=== PATIENT | female | born 1925 | race Caucasian/White ===

== ENCOUNTER 2016-07-12 15:12 | Inpatient (IN) | payer MEDICARE, BC ==
[2016-07-12] MEDS ORDERED: metroNIDAZOLE/Normal Saline 500 MG in Premix Bag 1 BAG IV SCH (17:00)
[2016-07-12] MEDS ORDERED: Ketorolac 30 MG/ML SDV IVPUSH PRN (17:06)
[2016-07-12] MEDS ORDERED: Ondansetron 4 MG Tab.DIS PO PRN (17:06)
[2016-07-12] MEDS ORDERED: Sodium Chloride 0.9% 10 ML Syringe FLUSH PRN (17:06)
[2016-07-12] MEDS ORDERED: Enoxaparin 30 MG/0.3 ML Syringe SUBCUT SCH (17:15)
--- NOTE | 2016-07-12 17:16 | PCM.HP ---
H&P History of Present Illness - General Date of Service: 07/12/16 Admit Problem/Dx: Admission Diagnosis/Problem Admission Diagnosis/Problem Diverticulitis Source of Information: Patient History Limitations: Reports: No Limitations - History of Present Illness Initial Comments - Free Text/Narative: This is 89-year-old female patient has had left lower quadrant abdominal pain for couple days. She saw Dr. Koehler today. He felt she was very sick looking and wanted to go the hospital. She states she can't rule out subtle because she needs to take care of her . The ear metronidazole and Bactrim. Her son called later in [place] going on and she came over for admission. She denies fevers, chills, nausea, vomiting, hematochezia, melena, diarrhea or constipation. She states she said diverticulitis before. She denies any vaginal discharge or dysuria, pyuria or hematuria. - Related Data Allergies/Adverse Reactions: Allergies Allergy/AdvReac Type Severity Reaction Status Date / Time amoxicillin Allergy Nausea and Verified 07/12/16 16:42 Vomiting codeine Allergy Headache Verified 07/12/16 16:44 hydrocodone Allergy Nausea Verified 07/12/16 16:50 hydromorphone [From Dilaudid] Allergy Nausea and Verified 07/12/16 16:44 Vomiting meperidine Allergy Nausea and Verified 07/12/16 16:45 Vomiting morphine Allergy Hives Verified 07/12/16 16:43 oxycodone Allergy Headache Verified 07/12/16 16:45 pentazocine Allergy Headache Verified 07/12/16 16:46 prednisolone Allergy Cannot Verified 09/20/15 16:19 Remember tramadol Allergy Nausea and Verified 07/12/16 16:47 Vomiting ciprofloxacin AdvReac Burning Verified 09/20/15 16:19 narcotics Allergy Vomiting Uncoded 09/20/15 16:19 Home Medications: Home Meds Latanoprost [Xalatan 0.005% Ophth Soln] 1 drop EYEBOTH BEDTIME 10/10/15 [History ] Timolol Maleate [Timoptic 0.5% Ophth Soln] 1 drop EYERT BIDMEALS 10/11/15 [ History] Sulfamethoxazole/Trimethoprim [Septra DS] 1 tab PO BID 07/12/16 [History] metroNIDAZOLE [Metronidazole] 500 mg PO TID 05/11/17 [History] Past Medical History HEENT History: Reports: Cataract, Other (see below) 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 Has follow up and injections for it in [facility] Cardiovascular History: Reports: Other (see below) Other Cardiovascular History: Pt states she has had mild issues with her heart. CONSTRUCTION JOB TITLES History: Reports: Musculoskeletal History: Reports: Back pain, chronic Other Musculoskeletal History: weakness in both legs, uses a cane. Has bone on bone in her back. 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 Neurological Surgical History: Reports: None Musculoskeletal Surgical History: Reports: Shoulder surgery Social & Family History - Family History Family Medical History: Noncontributory Other Cardiac Family History: both parents of strokes. OBGYN: Reports: - Tobacco Use Smoking Status *Q: Former Smoker Years of Tobacco use: 3 Used Tobacco, but Quit: No Month Tobacco Last Used: October Second Hand Smoke Exposure: No - Caffeine Use Caffeine Use: Reports: Coffee Other Caffeine Use: 3 cups per day - Alcohol Use Days Per Week of Alcohol Use: 0 - Recreational Drug Use Recreational Drug Use: No H&P Review of Systems - Review of Systems: Review Of Systems: See Below General: Reports: No Symptoms HEENT: Reports: No Symptoms Pulmonary: Reports: No Symptoms Cardiovascular: Reports: No Symptoms Gastrointestinal: Reports: Abdominal Pain Genitourinary: Reports: No Symptoms Musculoskeletal: Reports: No Symptoms Skin: Reports: No Symptoms Psychiatric: Reports: No Symptoms Neurological: Reports: No Symptoms Hematologic/Lymphatic: Reports: No Symptoms Immunologic: Reports: No Symptoms Exam - Exam Exam: See Below - Vital Signs Weight: 145 lb 12.8 oz - Exam General: Alert, Oriented, Cooperative HEENT: PERRLA, Hearing Intact, Mucosa Moist & [place], Posterior Pharynx Clear, TMs Clear Neck: Supple, Trachea Midline. No: Carotid Bruit Lungs: Clear to Auscultation, Normal Respiratory Effort. No: Crackles, Rales, Rhonchi Cardiovascular: Regular Rate, Regular Rhythm, Normal S1, Normal S2. No: Tachycardia Abdomen: Soft, Tenderness (Left lower quadrant). No: Distention, Guarding, Rigidity Back Exam: Normal Inspection, Full Range of Motion Extremities: Normal Inspection. No: Edema Skin: Warm, Dry, Intact Neurological: Strength Equal Bilateral, Normal Tone Neuro Extensive - Mental Status: Alert, Oriented x3, Normal Mood/Affect, Normal Cognition, Memory Intact *Q Meaningful Use (ADM) - VTE *Q VTE Criteria *Q: - Stroke *Q Stroke Criteria *Q: - AMI *Q AMI Criteria *Q: - Problem List (1) Diverticulitis SNOMED Code(s): 479045595 ICD Code: K57.92 - DVTRCLI OF INTEST, PART UNSP, W/O PERF OR ABSCESS W/O BLEED Status: Acute Current Visit: No Onset Date: 09/15/13 Problem Details: DC home today on Flagyl/cipro Problem List Initiated/Reviewed/Updated: Yes Orders Last 24hrs: Active Orders 24 hr Category Date Time Status Admission Status [Patient Status] [ADT] Routine ADT 07/12/16 15:33 Active Patient Status [ADT] Routine ADT 07/12/16 17:06 Ordered Height and Weight [RC] DAILY Care 07/12/16 17:06 Ordered Intake and Output [RC] QSHIFT Care 07/12/16 17:07 Ordered Oxygen Therapy [RC] PRN Care 07/12/16 17:06 Ordered Up ad Sarah [RC] ASDIRECTED Care 07/12/16 17:06 Ordered VTE/DVT Education [RC] Per Unit Routine Care 07/12/16 17:06 Ordered Vital Signs [RC] Q4H Care 07/12/16 17:06 Ordered Regular Diet [DIET] Diet 07/12/16 Dinner Ordered CBC WITH AUTO DIFF [HEME] Routine Lab 07/12/16 17:06 Ordered COMPREHENSIVE METABOLIC PN,CMP [CHEM] Routine Lab 07/12/16 17:06 Ordered CULTURE BLOOD [BC] Urgent Lab 07/12/16 17:09 Ordered CULTURE BLOOD [BC] Urgent Lab 07/12/16 17:09 Ordered UA W/MICROSCOPIC [URIN] Routine Lab 07/12/16 17:06 Uncollected Acetaminophen [Tylenol Extra Strength] Med 07/12/16 17:10 Ordered 500 mg PO Q6H PRN Enoxaparin [Lovenox] Med 07/12/16 17:15 Ordered 30 mg SUBCUT DAILY Ketorolac [Toradol] Med 07/12/16 17:06 Ordered 30 mg IVPUSH Q6H PRN Lactated Ringers [Ringers, Lactated] 1,000 ml Med 07/12/16 17:15 Ordered IV ASDIRECTED Latanoprost [Xalatan 0.005% Ophth Soln] Med 07/12/16 21:00 Ordered 1 drop EYEBOTH BEDTIME Ondansetron [Zofran ODT] Med 07/12/16 17:06 Ordered 4 mg PO Q4H PRN Sodium Chloride 0.9% [Saline Flush] Med 07/12/16 17:06 Ordered 10 ml FLUSH ASDIRECTED PRN Timolol Maleate [Timoptic 0.5% Ophth Soln] Med 07/12/16 18:00 Ordered 1 drop EYERT BIDMEALS cefTRIAXone [Rocephin] 1,000 mg Med 07/12/16 17:15 Ordered Sodium Chloride 0.9% [Normal Saline] 50 ml IV Q24H metroNIDAZOLE/Normal Saline [Flagyl 500 MG in NS 100 ML Med 07/12/16 17:15 Ordered ] 500 mg Premix Bag 1 bag IV Q8H Blood Culture x2 Reflex Set [OM.PC] Urgent Oth 07/12/16 17:06 Ordered Peripheral IV Insertion Adult [OM.PC] Routine Oth 07/12/16 17:06 Ordered Sequential Compression Device [OM.PC] Per Unit Routine Oth 07/12/16 17:07 Ordered Resuscitation Status Routine Resus Stat 07/12/16 17:06 Ordered Assessment/Plan Comment:: 1. Admit to the floor. 2. IV fluids. 3. Patient has lots of allergies. I will give Rocephin 1 g every 24 IV with metronidazole 500 mg IV every 8 hours. 4. Patient has allergies to narcotics. Transient Toradol 30 mg IV every 6 hours when necessary for pain. Or Tylenol 500 mg every 4 hours when necessary. 5. Discussed gastrectasis. She wants to be DO NOT RESUSCITATE/DO NOT INTUBATE. 6. Regular diet. 7. Up ad sarah. 8. CBC, UA, chem 12. 9. The VTE prophylaxis 10. The patient has a high white count and worsening abdominal findings. Consider CT of the abdomen in the future.
[2016-07-12] MEDS: Lactated Ringers 1,000 ML IV SCH (17:30)
[2016-07-12] MEDS ORDERED: Timolol Maleate 0.5% Ophth Soln 5 ML Bottle EYERT SCH (18:00)
[2016-07-12] MEDS ORDERED: Timolol Maleate 0.5% Ophth Soln 5 ML Bottle **OWN MED EYERT SCH (18:00)
[2016-07-12] MEDS: cefTRIAXone 1,000 MG in Sodium Chloride 0.9% 50 ML IV SCH (18:24)
[2016-07-12] MEDS: Acetaminophen 500 MG Tab PO PRN (18:24)
[2016-07-12] MEDS: Sodium Chloride 0.9% 250 ML IV SCH (18:30)
[2016-07-12] MEDS ORDERED: Iopamidol 755 Mg/ML 75 ML Bottle IV ONE (20:03)
[2016-07-12] MEDS ORDERED: Latanoprost 0.005% Ophth Soln 2.5 ML Bottle EYEBOTH SCH (21:00)
[2016-07-12] MEDS: LATANOPROST 0.005% EYEBOTH SCH (21:54)
[2016-07-12] MEDS: metroNIDAZOLE/Normal Saline 500 MG in Premix Bag 1 BAG IV SCH (21:54)
[2016-07-12] MEDS ORDERED: Enoxaparin 30 MG/0.3 ML Syringe SUBCUT ONE (22:00)
[2016-07-13] MEDS: metroNIDAZOLE/Normal Saline 500 MG in Premix Bag 1 BAG IV SCH ×2 (05:34→14:25)
[2016-07-13] MEDS: Acetaminophen 500 MG Tab PO PRN (05:38)
[2016-07-13] MEDS ORDERED: Acetaminophen 500 MG Tab PO PRN (08:37)
--- NOTE | 2016-07-13 10:01 | PN ---
DATE SEEN: 07/13/2016 REASON FOR VISIT: Left lower quadrant abdominal pain. HISTORY OF PRESENT ILLNESS: This is an 89-year-old female admitted from an outpatient clinic yesterday because of pain in the left lower quadrant, was found to have diverticulitis on a CT scan. She has little appetite. Denies nausea, vomiting, or diarrhea. No constipation. REVIEW OF SYSTEMS: No fever or chills. Some chest wall pain from recent rib fracture. ALLERGIES: She has multiple allergies. Please see the nurse's note for the complete list. PHYSICAL EXAMINATION: GENERAL: She is not in distress. She is well nourished. VITAL SIGNS: Her blood pressure is normal. Her pulse is 73 beats per minute. EARS, NOSE, AND THROAT: Negative. CHEST: Clear. CARDIOVASCULAR: S1, S2 normal. ABDOMEN: Soft. There is exquisite tenderness on the left lower quadrant. LABORATORY DATA: White cell count was normal yesterday. CT was reviewed and also showed 1 cm sized pulmonary nodule. IMPRESSION: 1. Acute diverticulitis. 2. Pulmonary nodule. PLAN: Continue current treatment, increase Tylenol to 1000 mg to help the pain. Decrease to clear liquid diet. Continue IV fluid. Continue the Rocephin and metronidazole. Our plan is to possibly discharge her tomorrow if she is able to tolerate normal fluid, and her pain is better. Already, the family feels that she is improving. /[id number] AQUILINO/BOBBY
[2016-07-13] MEDS: Lactated Ringers 1,000 ML IV SCH (11:24)
[2016-07-13] MEDS: Timolol Maleate 0.5% Ophth Soln 5 ML Bottle **OWN MED EYERT SCH ×2 (11:51→17:09)
[2016-07-13] MEDS: cefTRIAXone 1,000 MG in Sodium Chloride 0.9% 50 ML IV SCH (17:10)
[2016-07-13] MEDS: Sodium Chloride 0.9% 250 ML IV SCH (17:10)
[2016-07-13] MEDS ORDERED: Enoxaparin 30 MG/0.3 ML Syringe SUBCUT SCH ×2 (21:00)
[2016-07-13] MEDS: LATANOPROST 0.005% EYEBOTH SCH (21:17)
[2016-07-14] MEDS: metroNIDAZOLE/Normal Saline 500 MG in Premix Bag 1 BAG IV SCH ×2 (00:17→06:08)
[2016-07-14] MEDS: Lactated Ringers 1,000 ML IV SCH (04:25)
[2016-07-14] MEDS: Timolol Maleate 0.5% Ophth Soln 5 ML Bottle **OWN MED EYERT SCH (08:14)
--- NOTE | 2016-07-14 09:28 | PN ---
DATE SEEN: 07/14/2016 CHIEF COMPLAINT: Abdominal pain. HISTORY OF PRESENT ILLNESS: This is an 89-year-old female admitted 2 days ago with abdominal pain on the left side. She is being treated for diverticulitis. She had some loose stools yesterday, but the pain has improved. REVIEW OF SYSTEMS: No fever. No chest pain. MEDICATIONS: Reviewed. ALLERGIES: Amoxicillin, especially, gives her nausea and vomiting. PHYSICAL EXAMINATION: GENERAL: She is not in distress. She is afebrile. VITAL SIGNS: Her blood pressure is 144/86. EARS, NOSE, AND THROAT: Negative. NECK: Supple. CHEST: Clear. HEART: Regular rhythm. ABDOMEN: Soft and nondistended, but there is tenderness on the left lower quadrant. No rebound or rigidity. LABORATORY DATA: This morning, white cell count is 8.2. Electrolytes are normal. IMPRESSION: Acute diverticulitis. PLAN: We will discharge her home today. I will put her on Zofran so that it can help to keep things down and send her home on Augmentin 875 mg b.i.d. I would like her to be seen in the office next week by PCP. In the meantime, clear liquid diet. /[id number] AQUILINO/BOBBY
[2016-07-14 09:44] VITALS: BP 143/80
--- NOTE | 2016-07-14 21:06 | DISCH ---
DISCHARGE DATE: 07/14/2016 REASON FOR ADMISSION: Acute diverticulitis. DISCHARGE DIAGNOSIS: Acute diverticulitis. PROCEDURES: CT scan revealed diverticulitis. BRIEF HISTORY AND HOSPITAL COURSE: An 89-year-old female who came in with left lower quadrant pain from the clinic. She was found to have diverticulitis. Has been treated with Rocephin and Flagyl. Her symptoms have improved somewhat. She has had some loose stools, but she is on a clear liquid diet. I recommended discharge today. She has problems tolerating oral antibiotics because of vomiting, as such I have decided to send her home with some Zofran which seems to help the nausea and vomiting when she takes medications. I advised her to see Dr. Taylor on Saturday. I spent 35 minutes or more in the discharge of the patient. /[id number] AQUILINO/BOBBY
== END 2016-07-14 13:48 | disposition home or self-care (01) | DRG 392 ==
LOC: EDSTATUS 15:26 → FB.MS 15:28
PROVIDERS: ADMIT Family Medicine; ATTEND Family Medicine
DX: K57.92 Diverticulitis of intestine, part unspecified, without perforation or abscess without bleeding (principal); R91.1 Solitary pulmonary nodule; G89.29 Other chronic pain; M54.9 Dorsalgia, unspecified; R53.1 Weakness; Z79.899 Other long term (current) drug therapy; Z88.6 Allergy status to analgesic agent; Z88.1 Allergy status to other antibiotic agents; Z88.8 Allergy status to other drugs, medicaments and biological substances; Z87.891 Personal history of nicotine dependence
CPT/HCPCS: 36415; 74177; 80053; 81001; 85025; 87040; 87086; A9270-GY; J0696; J1650; J7050; J7120; Q9967